=== PATIENT | female | born 1990 | race Caucasian/White ===

== ENCOUNTER 2016-09-13 10:42 | Emergency (ER) | payer OTHER ==
[~2016-09-13] VITALS: Ht 152.4 cm; Wt 59.1 kg
[~2016-09-13 10:42] MED LIST: CLIN-78 PO; IBUP800T28 PO; MUPI22OI TOPICAL; OXYC5CAP4 PO
[2016-09-13 10:54] VITALS: BP 100/68; PULSE 80; RESP 16; O2SAT 98
--- NOTE | 2016-09-13 10:57 | ED.REPORT ---
HPI-Dental/Mouth Prob Date of Service Sep 13, 2016 ED Provider: History of Present Illness: abscess on gum present for 10 days. Seen at [facility] given amox and mouth rinse. no dental care. no primary care. 12/14 Nursing Notes Stated Complaint: ABSCESS IN MOUTH Chief Complaint: Dental Nursing Notes Reviewed: Yes Allergies: Coded Allergies: No Known Allergies (Verified , 06/29/16) Scheduled Clindamycin (Clindamycin) 300 Mg Capsule 300 MG PO QID Mupirocin Oint (Bactroban Oint) 22 Gm Oint...g. 1 APPLIC TOPICAL TID Scheduled PRN Ibuprofen (Ibuprofen) 800 Mg Tablet 800 MG PO Q6 PRN PRN For Pain oxyCODONE (oxyCODONE) 5 Mg Capsule 5 MG PO Q4H PRN PRN For Pain General Time Seen by MD: 10:57 Chief Complaint Other (gum abscess) Hx Obtained From: Patient Onset Occurred: More than a week ago... Context of Onset: Other (drug use meth) Symptom Duration: Since onset Severity: Current: Pain level 7 out of 10 Past Medical History Past Medical History 1. History of acute septic shock due to IV drug use. 2. Anemia, acute due to sepsis. 3. IV heroin and methamphetamine abuse, active. 4. Tobacco dependence with daily cigarette smoking. 5. Acute pain. 6. Asymptomatic sinus bradycardia. 7. History of ESBL E.coli bacteremia and pyelonephritis in August 2013. 8. History of 2sepsis and possible endocarditis. 9. Pyelonephritis with Extended Spectrum Beta-Lactamases E.Coli urinary tract infection and bacteremia. 10 Asthma Reports: Asthma Past Surgical History none reported Family History None Reported Smoking History Current Every Day Smoker (1/2 pack for 12 years) Social History last drug use 09/12/2016, 09/13/2016 not interested in treatment at this time Alcohol Use: Denies alcohol use Drug Use: IV drugs, Meth, Other (herion) Other Social History: Poor social support, Local resident Occupation live with partner, no work or school 09/13/2016 Ambulatory Status Independent Review of Systems Basic Review of Systems Eyes: Vision NL, No discharge Hematologic: No bleeding, No bruising Physical Exam Initial Vital Signs Vital Signs (First) Date Time Temp Pulse Resp B/P Pulse Ox O2 Delivery O2 Flow Rate FiO2 09/13/16 10:54 36.8 80 16 100/68 98 Room Air Initial VS: Reviewed, Vital signs normal General/Constitutional: Well-developed, Well-nourished Head / Eyes: Atraumatic, Normocephalic, PERRL Respiratory: Breath sounds normal, Clear to auscultation, No respiratory distress Cardiovascular: Regular rate & rhythm, Heart sounds normal, Intact distal pulses Abdomen / GI: Soft, Non-tender, No guarding, No rebound, No distention Back: No CVA tenderness Lymphatic: No lymphadenopathy Extremities: Vascular intact, Neuro intact, No swelling, No tenderness Skin: Warm, Dry, No cyanosis Neurologic: Alert, Oriented, Nonfocal Psychiatric: Mood/affect normal, Behavior normal, Normal thought content ENT: Atraumatic, Airway patent, Mucous membranes moist, Pharynx NL Neck: Atraumatic, Supple, No meningismus, Full range of motion, No adenopathy General/Constitutional: Awake, Alert, No acute distress, Well appearing, Well developed, Well hydrated Head / Eyes: Atraumatic, Normocephalic, PERRL, EOMI oral exam shows extensive chronic decay. Many teeth are fractured at the gum line. Tooth in question is fractured at the gum line with small 4 mm area of swelling above tooth. No external skin deviation, no trismusis Respiratory / Chest: Atraumatic, Breath sounds NL, Breath sounds = bilat, No respiratory distress Cardiovascular: Heart rate NL, Regular rhythm, Heart sounds NL, No gallop Neurologic: Oriented X3, Speech NL, No motor deficits Procedures Incision & Drainage Abscess Time: 11:10 Procedure Performed by: Allied health pract Consent / Setup / Site Prep: Informed consent provided, Consent from patient Location of Abscess: gum Local Anesthesia: Bupivacaine 0.5%, 1cc, 27g needle Incised Abscess with Scalpel: #11 Pus Drained: Small, Purulent discharge Irrigation: Copious, 100 cc Post-Procedure / Complications: No complications, Condition improved, Tolerated procedure well, Patient stable Re-Eval/Medical Decision Med Decision/Clinical Course 26 year old female presents to the ER for evualation of swelling on her gum. Patient has been seen at [facility] and started on antibiotics. patient desires it drained. Area is injected with bupivicaine and opened with 11 blade amall amount of discharge out. Patient tolerated procedure well. Provided dental resources, patient states not interested in drug treatment at this time. No sign of uvelitis or stomatitis. Does show extensive decay Discharge & Departure Primary Impression: Dental abscess Disposition: Home Patient Instructions: Dental Abscess (ED) Additional Instructions: The abscess has been opened and drained. Continue to rinse with warm salt water frequently today and tomorrow. Continue with the antibiotics. Use ibuprofen 600 mg every 6 hours to decrease swelling. Please use one of the dental resources listed to seek dental care. [facility] is open Wednesday thru Wednesday and they occasionally have cancellations. Please call them for information. Establish in primary care with the residency clinic. Referrals: [facility] EDSupervising Provider for APC: Harvey Guardado MD copies to: [facility] Gissell Shine Sep 13, 2016 10:57
== END 2016-09-13 11:21 | disposition home or self-care (01) ==
LOC: SED 10:42
DX: K04.7 Periapical abscess without sinus (principal); J45.909 Unspecified asthma, uncomplicated; F17.200 Nicotine dependence, unspecified, uncomplicated